=== PATIENT | male | born 1995 | race Caucasian/White ===

== ENCOUNTER 2017-06-09 11:30 | Emergency (ER) | payer SELFPAY ==
[2017-06-09 11:47] VITALS: BP 112/66; PULSE 102; TEMP 98.2; BMI 19.0
--- NOTE | 2017-06-09 12:50 | PDOC ---
History of Present Illness - General Chief Complaint: Pain, Acute Stated Complaint: IM INJECTION Time Seen by Provider: 06/09/17 12:23 History Source: Patient, Parent(s) Exam Limitations: No Limitations - History of Present Illness Initial Comments: 06/09/17 15:15 CHIEF COMPLAINT: Here for Risperdal Consta injection HISTORY OF PRESENT ILLNESS: Patient is a 21-year-old male with history of mood disorder and drug induced schizophrenia presents to emergency department with father requesting for his Risperdal Consta injection to be adminstered. Father reports the patient was discharged from [facility] psychiatric with prescription for 25 mg of Risperdal Consta, was to have injection placed on June 09 father reports no one instructed him how to give the injection. He attempted to go to his psychiatrist however his insurance is not active presents to emergency department with medication and hand. Patient denies any flight of ideas, no suicidal ideation, no filling of hurting himself or others. history: Delivered at 37 weeks, no O2 or NICU stay required. Past Medical History: See nursing note, Family History: Otherwise not significant Social History: Otherwise not significant REVIEW OF SYSTEMS: GENERAL/CONSTITUTIONAL: No fever or chills. No weakness. No weight change. HEAD, EYES, EARS, NOSE AND THROAT: No change in vision. No ear pain or discharge. No sore throat. CARDIOVASCULAR: No chest pain or shortness of breath. RESPIRATORY: No cough, no wheezing GASTROINTESTINAL: No diarrhea or constipation. GENITOURINARY: No dysuria, frequency, or change in urination. MUSCULOSKELETAL: No joint or muscle swelling or pain. No neck or back pain. SKIN: No rash or lesions NEUROLOGIC: No headache. HEMATOLOGIC/LYMPHATIC: No lymphadenopathy ALLERGIC/IMMUNOLOGIC: No hives or skin allergy. No latex allergy. PHYSICAL EXAM: GENERAL: The child is awake, alert, and appropriately interactive. EYES: The pupils are equal, round, and reactive to light, with clear, conjunctiva. NOSE: The nose is clear without discharge. EARS: The ear canals and tympanic membranes are normal. THROAT: The oropharynx is clear without erythema or exudates. No oral lesions . The mucous membranes are moist. NECK: The neck is supple without adenopathy or meningismus. CHEST: The lungs are clear without wheezes or rhonchi. HEART: Heart is regular rhythm, with normal S1 and S2, no murmurs. ABDOMEN: The abdomen is soft and nontender with normal bowel sounds. There is no organomegaly and no mass. There is no guarding or rebound. EXTREMITIES: Extremities are normal. NEURO: Behavior is normal for age. Tone is normal. SKIN: No rash , lesions or petechie. Past History - Past Medical History Allergies/Adverse Reactions: Allergies Allergy/AdvReac Type Severity Reaction Status Date / Time No Known Allergies Allergy Verified 06/09/17 11:40 CVA: No COPD: No DVT: No Dementia: No - Immunization History Immunization Up to Date: Yes - Suicide/Smoking/Psychosocial Hx Smoking History: Never smoked Have you smoked in the past 12 months: No Information on smoking cessation initiated: No Hx Alcohol Use: No Drug/Substance Use Hx: No Substance Use Type: None *Physical Exam - Vital Signs Last Vital Signs Temp Pulse Resp BP Pulse Ox 98.2 F 102 H 17 112/66 100 06/09/17 11:42 06/09/17 11:42 06/09/17 11:42 06/09/17 11:42 06/09/17 11:42 Medical Decision Making - Medical Decision Making 06/09/17 15:18 A/P: Patient here for Risperdal Consta injection injection placed to right buttocks patient presented with paperwork from [facility] signed by psychiatrist describing his medication administration and needs, medication given as per prescription. No side effects, patient tolerated the injection well to follow up with psychiatry *DC/Admit/Observation/Transfer Diagnosis at time of Disposition: Medication administered - Discharge Dispostion Disposition: HOME Condition at time of disposition: Stable Admit: No - Referrals - Patient Instructions Additional Instructions: Follow up with psychiatry for further injections, continue taking her medication as previously prescribed - Post Discharge Activity
== END 2017-06-09 12:54 | disposition home or self-care (01) ==
LOC: JERFT 11:30
PROC: 3E023GC Introduction of Other Therapeutic Substance into Muscle, Percutaneous Approach (ICD-10-PCS; principal; 2017-06-09)
DX: Z79.899 Other long term (current) drug therapy (principal); F39 Unspecified mood [affective] disorder; F20.89 Other schizophrenia
CPT/HCPCS: 99281-25